=== PATIENT | female | born 1940 | race Hispanic/Latino ===

== ENCOUNTER 2022-05-03 19:21 | Emergency (ER) | payer MEDICARE ==
[2022-05-03 21:51] LABS: Basophils % (Auto) 0.5 % (0.0-1.8); Eosinophils # (Auto) 0.1 K/mm3 (0.0-0.4); Eosinophils % (Auto) 0.8 % (0.0-4.3); Hematocrit 35.5 % (30.3-42.9); Hemoglobin 11.3 gm/dl (10.1-14.3); Lymphocytes % (Auto) 12.5 % (13.4-35.0); Mean Corpuscular HGB Conc 32 % (30-34); Mean Corpuscular Volume 84 fl (79-97); Monocytes # (Auto) 0.5 K/mm3 (0.0-0.8); Monocytes % (Auto) 5.8 % (0.0-7.3); Platelet Count 142 K/mm3 (140-440); Red Blood Count 4.24 M/mm3 (3.65-5.03); Red Cell Distribution Width 18.7 % (13.2-15.2)
[2022-05-03 22:06] LABS: Alanine Aminotransferase 21 units/L (7-56); Albumin 3.2 g/dL (3.9-5); Blood Urea Nitrogen 16 mg/dL (7-17); Calcium 9.5 mg/dL (8.4-10.2); Hemolysis Index 20
[2022-05-03 22:07] LABS: BUN/Creatinine Ratio 40
--- NOTE | 2022-05-03 22:59 | Emergency Department Report ---
ED Psych HPI - General Chief Complaint: Psych Stated Complaint: MEDICAL CLEARANCE Time Seen by Provider: 05/03/22 19:35 Source: EMS Mode of arrival: Stretcher - History of Present Illness Initial Comments: Patient is a 81-year-old female sent from [facility]. She reportedly was there for suicidal ideations however did not meet admission criteria. - Related Data Home Medications Medication Instructions Recorded Confirmed Last Taken ARIPiprazole [Abilify] 10 mg PO HS 05/03/22 05/03/22 Unknown Aspirin [Aspirin BABY CHEW TAB] 81 mg PO QDAY 05/03/22 05/03/22 Unknown Calcium Citrate [Calcium Citrate 400 mg PO BID 05/03/22 05/03/22 Unknown 200MG TAB] Ferrous Sulfate [Iron 325 MG] 325 mg PO DAILY 05/03/22 05/03/22 Unknown Leflunomide [Arava] 10 mg PO QDAY 05/03/22 05/03/22 Unknown Losartan [Cozaar] 25 mg PO QDAY 05/03/22 05/03/22 Unknown Mirtazapine [Remeron] 7.5 mg PO HS 05/03/22 05/03/22 Unknown Omeprazole 20 mg PO DAILY 05/03/22 05/03/22 Unknown QUEtiapine [SEROquel] 150 mg PO HS 05/03/22 05/03/22 Unknown Simvastatin 40 mg PO HS 05/03/22 05/03/22 Unknown Tolterodine (Nf) [Detrol LA] 4 mg PO HS 05/03/22 05/03/22 Unknown amLODIPine [Norvasc] 5 mg PO DAILY 05/03/22 05/03/22 Unknown clonazePAM [ Klonopin] 0.5 mg PO Q12H 05/03/22 05/03/22 Unknown Allergies Allergy/AdvReac Type Severity Reaction Status Date / Time clozapine Allergy Unknown Verified 05/03/22 20:36 ED Review of Systems ROS: Stated complaint: MEDICAL CLEARANCE Other details as noted in HPI Constitutional: denies: chills, fever Respiratory: denies: cough, shortness of breath, wheezing Cardiovascular: denies: chest pain, palpitations Gastrointestinal: denies: abdominal pain, nausea, diarrhea Genitourinary: denies: urgency, dysuria, discharge Neurological: denies: headache, weakness, paresthesias Psychiatric: suicidal thoughts ED Past Medical Hx - Past Medical History Previous Medical History?: Yes Hx Hypertension: Yes Hx Psychiatric Treatment: Yes (bipolar) - Surgical History Past Surgical History?: No - Medications Home Medications: Home Medications Medication Instructions Recorded Confirmed Last Taken Type ARIPiprazole [Abilify] 10 mg PO HS 05/03/22 05/03/22 Unknown History Aspirin [Aspirin BABY CHEW TAB] 81 mg PO QDAY 05/03/22 05/03/22 Unknown History Calcium Citrate [Calcium Citrate 400 mg PO BID 05/03/22 05/03/22 Unknown History 200MG TAB] Ferrous Sulfate [Iron 325 MG] 325 mg PO DAILY 05/03/22 05/03/22 Unknown History Leflunomide [Arava] 10 mg PO QDAY 05/03/22 05/03/22 Unknown History Losartan [Cozaar] 25 mg PO QDAY 05/03/22 05/03/22 Unknown History Mirtazapine [Remeron] 7.5 mg PO HS 05/03/22 05/03/22 Unknown History Omeprazole 20 mg PO DAILY 05/03/22 05/03/22 Unknown History QUEtiapine [SEROquel] 150 mg PO HS 05/03/22 05/03/22 Unknown History Simvastatin 40 mg PO HS 05/03/22 05/03/22 Unknown History Tolterodine (Nf) [Detrol LA] 4 mg PO HS 05/03/22 05/03/22 Unknown History amLODIPine [Norvasc] 5 mg PO DAILY 05/03/22 05/03/22 Unknown History clonazePAM [ Klonopin] 0.5 mg PO Q12H 05/03/22 05/03/22 Unknown History ED Physical Exam - General Limitations: Other General appearance: alert, in no apparent distress - Head Head exam: Present: atraumatic, normocephalic - Neck Neck exam: Present: normal inspection - Respiratory Respiratory exam: Present: normal lung sounds bilaterally. Absent: respiratory distress - Cardiovascular Cardiovascular Exam: Present: regular rate, normal rhythm - GI/Abdominal GI/Abdominal exam: Present: soft. Absent: distended, tenderness - Rectal Rectal exam: Present: deferred - Neurological Exam Neurological exam: Present: alert - Psychiatric Psychiatric exam: Present: normal affect, suicidal ideation - Skin Skin exam: Present: warm, dry, intact, normal color ED Course Vital Signs 05/03/22 19:50 Temperature 98.2 F Pulse Rate 86 Respiratory 13 Rate Blood Pressure 125/67 [Left] O2 Sat by Pulse 97 Oximetry ED Medical Decision Making - Lab Data Result diagrams: 05/03/22 20:54 05/03/22 21:35 - Medical Decision Making CBC CMP unremarkable. Urinalysis and UDS pending. 1013 currently on file. Mental health assessment pending. Critical care attestation.: If time is entered above; I have spent that time in minutes in the direct care of this critically ill patient, excluding procedure time. ED Disposition Clinical Impression: Suicidal ideation Disposition: 30 STILL A PATIENT Condition: Stable Referrals: PRIMARY CARE, [Primary Care Provider] - 3-5 Days
[2022-05-04 07:25] LABS: Bilirubin,Urine NEG (Negative); Blood,Urine NEG (Negative); Color,Urine Yellow (Yellow); Protein,Urine <15 mg/dL mg/dL (Negative); Urobilinogen,Urine < 2.0 mg/dL (<2.0)
[2022-05-04 07:26] LABS: Mucus,Urine FEW /HPF
[2022-05-04 07:34] LABS: Amphetamine Screen,Urine Negative; Benzodiazepines Screen,Urine Negative; Cannabinoid Screen,Urine Negative; Cocaine Screen,Urine Negative; Methadone Screen,Urine Negative; Opiate Screen,Urine Negative
[2022-05-04 13:06] VITALS: BP 145/71
--- NOTE | 2022-05-04 13:11 | Consultation ---
History of Present Illness - Reason for Consult Consult date: 05/04/22 Reason for consult: Mental health evaluation - History of Present Psychiatric Illness The patient is a 81 year old female with history of Dementia, schizophrenia, bipolar disorder. Per note, the patient resides at [facility] who was admitted to the [facility] unit with report that the patient has anxiety, depression and chronic pain. The patient was seen today. She is calm and kim ented to self. She reports not doing well, states that she is hurting " allover." The patient verbalized suicidal ideation but does not have any plans. She reports compliance with psychotropic medications. PAST PSYCHIATRIC HISTORY PAST MEDICAL HISTORY: Hypertention, Hyperlipedemia, TIS Family Psychiatric History: None reported or documented SOCIAL HISTORY REVIEW OF SYSTEMS MENTAL STATUS EXAMINATION Assessment and Plan (1) Hx Schizophrenia Treatment [place] 1013 Continue home meds. Sitter: Per primary Medical: Per primary Disposition: Do not recommend acute inpatient psychiatric treatment. Will sign off. Thanks Case staffed with Dr. Murdock Medications and Allergies Medications and Allergies Allergies Allergy/AdvReac Type Severity Reaction Status Date / Time clozapine Allergy Unknown Verified 05/03/22 20:36 Home Medications Medication Instructions Recorded Confirmed Last Taken Type ARIPiprazole [Abilify] 10 mg PO HS 05/03/22 05/03/22 Unknown History Aspirin [Aspirin BABY CHEW TAB] 81 mg PO QDAY 05/03/22 05/03/22 Unknown History Calcium Citrate [Calcium Citrate 400 mg PO BID 05/03/22 05/03/22 Unknown History 200MG TAB] Ferrous Sulfate [Iron 325 MG] 325 mg PO DAILY 05/03/22 05/03/22 Unknown History Leflunomide [Arava] 10 mg PO QDAY 05/03/22 05/03/22 Unknown History Losartan [Cozaar] 25 mg PO QDAY 05/03/22 05/03/22 Unknown History Mirtazapine [Remeron] 7.5 mg PO HS 05/03/22 05/03/22 Unknown History Omeprazole 20 mg PO DAILY 05/03/22 05/03/22 Unknown History QUEtiapine [SEROquel] 150 mg PO HS 05/03/22 05/03/22 Unknown History Simvastatin 40 mg PO HS 05/03/22 05/03/22 Unknown History Tolterodine (Nf) [Detrol LA] 4 mg PO HS 05/03/22 05/03/22 Unknown History amLODIPine [Norvasc] 5 mg PO DAILY 05/03/22 05/03/22 Unknown History clonazePAM [ Klonopin] 0.5 mg PO Q12H 05/03/22 05/03/22 Unknown History Mental Status Exam - Vital signs Last Vital Signs Temp 98.2 F 05/04/22 13:04 Pulse 78 05/04/22 13:04 Resp 15 05/04/22 13:04 BP 145/71 05/04/22 13:04 Pulse Ox 99 05/04/22 13:04 Results Result Diagrams: 05/03/22 20:54 05/03/22 21:35 Abnormal lab results 05/03/22 05/03/22 05/03/22 Range/Units 20:54 21:35 21:35 MCH 27 L (28-32) pg RDW 18.7 H (13.2-15.2) % Lymph % (Auto) 12.5 L (13.4-35.0) % Lymph # (Auto) 1.0 L (1.2-5.4) K/mm3 Seg Neutrophils % 80.4 H (40.0-70.0) % Creatinine 0.4 L (0.6-1.2) mg/dL Total Protein 5.4 L (6.3-8.2) g/dL Albumin 3.2 L (3.9-5) g/dL Salicylates < 0.3 L (2.8-20.0) mg/dL Acetaminophen (10.0-30.0) ug/mL 05/03/22 Range/Units 21:35 MCH (28-32) pg RDW (13.2-15.2) % Lymph % (Auto) (13.4-35.0) % Lymph # (Auto) (1.2-5.4) K/mm3 Seg Neutrophils % (40.0-70.0) % Creatinine (0.6-1.2) mg/dL Total Protein (6.3-8.2) g/dL Albumin (3.9-5) g/dL Salicylates (2.8-20.0) mg/dL Acetaminophen 5.0 L (10.0-30.0) ug/mL All other labs normal.
[2022-05-04] MEDS ORDERED: LOSARTAN 25 MG TAB PO SCH (16:00)
[2022-05-04] MEDS ORDERED: ASPIRIN 81 MG TAB CHEW PO SCH (16:00)
[2022-05-04] MEDS ORDERED: amLODIPine 5 MG TAB PO SCH (16:00)
[2022-05-04] MEDS ORDERED: clonazePAM 0.5 MG TAB PO SCH (16:00)
[2022-05-04] MEDS ORDERED: PRAVASTATIN 40 MG TAB PO SCH (22:00)
[2022-05-04] MEDS ORDERED: OXYBUTYNIN 5 MG TAB PO SCH ×2 (22:00)
[2022-05-04] MEDS ORDERED: MIRTAZAPINE 15 MG TAB PO SCH (22:00)
[2022-05-04] MEDS ORDERED: QUEtiapine 25 MG TAB PO SCH (22:00)
[2022-05-05] MEDS ORDERED: HYDROcodone/ACETAMINOPHEN 5-325 MG TAB PO SCH (10:00)
== END 2022-05-05 09:00 | disposition still patient (30) ==
LOC: ED 19:21
DX: R45.851 Suicidal ideations (principal); I10 Essential (primary) hypertension; F31.9 Bipolar disorder, unspecified; Z88.8 Allergy status to other drugs, medicaments and biological substances
CPT/HCPCS: 36415; 80053; 80307; 80320; 81001; 85025; 99284; G0480